=== PATIENT | female | born 1960 | race Caucasian/White ===

== ENCOUNTER → 2017-06-25 | Outpatient (CLI) | payer OTHER ==
[~2017-06-25] MED LIST: TRAMADOL HCL50 MG PO
== END | disposition home or self-care (01) ==
LOC: MAMMO 09:21
DX: Z12.31 Encounter for screening mammogram for malignant neoplasm of breast (principal)

== ENCOUNTER → 2017-07-27 | Day surgery (SDC) | payer OTHER ==
[~2017-07-27] VITALS: Ht 124.4 cm; Wt 78.0 kg
[~2017-07-27] MED LIST changes: +CELEXA20 MG PO; +PROVENTIL HFA6.7 GM INH
--- NOTE | ~2017-07-27 | PROC NOTE ---
[place], [place] PROCEDURE NOTE NAME: [id number] UNIT #: [id number] ROOM: DOCTOR: AMADEO GOODMAN MD BIRTHDATE: [birth year] DOS: 07/27/2017 PREOPERATIVE DIAGNOSIS: Screening examination. POSTOPERATIVE DIAGNOSIS: Normal colon. PROCEDURE: Colonoscopy. ENDOSCOPIST: Amadeo Goodman MD STEAM METER READER: JUDITH. ANESTHESIA: MAC. INDICATIONS: This is a 56-year-old lady who is here for a screening colonoscopy. The procedure and its complications explained to the patient in detail preoperatively. Complications that were discussed included but were not limited to bleeding, missed lesions, prolonged pain and colon perforation. She agreed to proceed. DESCRIPTION OF PROCEDURE: After identifying the patient, the patient was brought to the endoscopy suite and placed in the left lateral position. After IV sedation was administered, a timeout procedure was called. A digital rectal exam was performed, which was within normal limits. An adult colonoscope was now introduced into the anal canal and advanced sequentially into the rectum, sigmoid colon, descending colon, transverse colon and ascending colon up to the cecum. Upon reaching the cecum, the scope was withdrawn. Total withdrawal time was approximately 6 minutes and 45 seconds. There were no obvious lesions that could be seen in the entirety of the colon. The prep was suboptimal in certain areas of the colon and this stool that was encountered was washed away with the help of irrigation. After the entire colon was visualized, the scope was withdrawn and the patient was brought back to the recovery room in stable fashion. There were no complications. Based on these findings, the patient is recommended to have another colonoscopy in 10 years or sooner if she has new symptoms. These findings were discussed with the patient's in the postoperative recovery room. Amadeo Goodman MD CM:PROCNOTE:PROCEDURE NOTE [id number] AMADEO GOODMAN MD
[2017-07-27 07:30] VITALS: BP 115/62
[2017-07-27 08:23] VITALS: BP 100/46
[2017-07-27 08:40] VITALS: BP 98/50
[2017-07-27 08:53] VITALS: BP 99/52
== END | disposition home or self-care (01) ==
LOC: SDC 07-24 09:30
DX: Z12.11 Encounter for screening for malignant neoplasm of colon (principal)

== ENCOUNTER → 2017-10-29 | Outpatient (CLI) | payer OTHER ==
[2017-10-29 14:31] LABS: BASO # 0.1 10*3/uL (0.0-0.1); BASO % 0.7 % (0.0-1.0); EOS # 0.1 10*3/uL (0.0-0.4); EOS % 1.5 % (1.0-4.0); HEMATOCRIT 43.9 % (37.0-47.0); HEMOGLOBIN 14.3 g/dl (12.0-16.0); LYMPH # 3.1 10*3/uL (1.3-4.4); LYMPH % 34.5 % (27.0-41.0); MEAN CORPUSCULAR HGB 32.6 pg (27.0-31.0); MEAN CORPUSCULAR HGB CONC 32.6 g/dl (33.0-37.0); MEAN PLATELET VOLUME 9.3 fl (9.6-12.3); MONO # 0.6 10*3/uL (0.1-1.0); MONO % 6.9 % (3.0-9.0); NEUT % 56.1 % (47.0-73.0); PLATELET COUNT AUTOMATED 297 10*3/uL (130-400); RED BLOOD COUNT 4.39 10*6/uL (4.10-5.10); RED CELL DISTRI WIDTH 13.2 % (0-14.5); WHITE BLOOD COUNT 8.9 10*3/uL (4.8-10.8)
[2017-10-29 14:57] LABS: ALBUMIN 3.5 gm/dl (3.1-4.5); ALKALINE PHOSPHATASE 89 U/L (45-117); BUN 13 mg/dl (7-24); CHLORIDE 102 mmol/L (98-107); CREATININE 1.03 mg/dL (0.55-1.02); POTASSIUM 3.8 mmol/L (3.5-5.1); SGOT/AST 21 IU/L (3-35); SGPT/ALT 25 U/L (12-78); SODIUM 140 mmol/L (136-145); TOTAL PROTEIN 7.6 gm/dL (6.4-8.2)
== END | disposition home or self-care (01) ==
LOC: LAB 13:57
PROVIDERS: Internal Medicine
DX: E55.9 Vitamin D deficiency, unspecified (principal); E78.2 Mixed hyperlipidemia

== ENCOUNTER → 2017-12-26 | Outpatient (CLI) | payer OTHER ==
[2017-12-26 10:39] LABS: CHOLESTEROL 188 mg/dL (<200); HDL CHOLESTEROL 41 mg/dl (40-60); LDL CHOLESTEROL 91 mg/dL (9-159); TRIGLYCERIDES 278 mg/dl (<150); VLDL CHOLESTEROL 56 mg/dL (6-40)
== END | disposition home or self-care (01) ==
LOC: LAB 09:36
PROVIDERS: Internal Medicine
DX: E78.2 Mixed hyperlipidemia (principal)

== ENCOUNTER → 2019-09-10 | Outpatient (CLI) | payer OTHER | END | disposition home or self-care (01) | LOC: MAMMO 11:02 | DX: Z12.31 Encounter for screening mammogram for malignant neoplasm of breast (principal) ==

== ENCOUNTER → 2021-08-22 | Outpatient (CLI) | payer OTHER | END | disposition home or self-care (01) | LOC: MAMMO 09:17 | PROVIDERS: ATTEND Nurse Practitioner Primary Care | DX: Z12.31 Encounter for screening mammogram for malignant neoplasm of breast (principal) ==

== ENCOUNTER → 2021-09-27 | Outpatient (CLI) | payer OTHER | END | disposition home or self-care (01) | LOC: US 12:23 | PROVIDERS: ATTEND Nurse Practitioner Primary Care | DX: R92.8 Other abnormal and inconclusive findings on diagnostic imaging of breast (principal) ==

== ENCOUNTER → 2023-10-11 | Outpatient (CLI) | payer OTHER | END | disposition home or self-care (01) | LOC: MAMMO 02:18 | PROVIDERS: ATTEND Internal Medicine | DX: Z12.31 Encounter for screening mammogram for malignant neoplasm of breast (principal) ==

== ENCOUNTER → 2024-09-23 | Outpatient (CLI) | payer OTHER ==
[2024-09-23 11:38] LABS: BASO % 0.5 % (0.0-1.0); EOS # 0.2 10*3/uL (0.0-0.4); EOS % 2.4 % (1.0-4.0); MEAN CELL VOLUME 102.9 fl (81.0-99.0); MEAN CORPUSCULAR HGB CONC 32.1 g/dl (33.0-37.0); MEAN PLATELET VOLUME 8.9 fl (9.6-12.3); MONO # 0.4 10*3/uL (0.1-1.0); MONO % 6.2 % (3.0-9.0); NEUT # 4.4 10*3/uL (2.3-7.9); NEUT % 69.5 % (47.0-73.0); PLATELET COUNT AUTOMATED 256 10*3/uL (130-400); RED BLOOD COUNT 4.18 10*6/uL (4.10-5.10); RED CELL DISTRI WIDTH 13.5 % (0-14.5); WHITE BLOOD COUNT 6.3 10*3/uL (4.8-10.8)
[2024-09-23 12:02] LABS: ALKALINE PHOSPHATASE 97 U/L (46-116); BUN 5 mg/dl (9-23); CHLORIDE 105 mmol/L (98-107); CHOLESTEROL 140 mg/dL (<200); LDL CHOLESTEROL 71 mg/dL (9-159); POTASSIUM 3.6 mmol/L (3.4-5.1); SGPT/ALT 35 U/L (5-49); TOTAL PROTEIN 6.7 gm/dL (6.0-8.0); TRIGLYCERIDES 150 mg/dl (<150)
[2024-09-23 12:28] LABS: VITAMIN D, 25-HYDROXY 28.2 ng/mL (30-100)
== END | disposition home or self-care (01) ==
LOC: LAB 11:15
PROVIDERS: ATTEND Internal Medicine
DX: I10 Essential (primary) hypertension (principal); E78.2 Mixed hyperlipidemia; E56.9 Vitamin deficiency, unspecified; Z68.28 Body mass index [BMI] 28.0-28.9, adult